=== PATIENT | female | born 1990 | race Caucasian/White ===

== ENCOUNTER → 2020-07-13 | Outpatient (CLI) | payer OTHER ==
[~2020-07-13] MED LIST: IBUPROFEN800 MG PO; LODINE CAP 300300 MG PO
[2020-07-13 17:36] LABS: HEMOGLOBIN 13.3 gm/dl (12.3-15.3); RED BLOOD COUNT 4.23 M/UL (4.00-5.10); WHITE BLOOD COUNT 13.4 K/UL (4.5-11.0)
[2020-07-13 17:52] LABS: BUN/CREATININE RATIO 33 (0-10)
[2020-07-15 19:12] LABS: AMPHETAMINES, URINE Negative ng/mL (Cutoff=1000); BARBITURATE Negative ng/mL (Cutoff=200); BENZODIAZEPINES Negative ng/mL (Cutoff=200); CANNABINOIDS Negative ng/mL (Cutoff=20); COCAINE (METABOLITE) Negative ng/mL (Cutoff=300); CREATININE 210.3 mg/dL (20.0-300.0); MEPERIDINE Negative ng/mL (Cutoff=200); METHADONE Negative ng/mL (Cutoff=300); OPIATES Negative ng/mL (Cutoff=300); PHENCYCLIDINE Negative ng/mL (Cutoff=25); PROPOXYPHENE Negative ng/mL (Cutoff=300)
== END ==
LOC: LAB 16:54
PROVIDERS: Family Medicine
DX: R53.83 Other fatigue (principal)
CPT/HCPCS: 80053; 80307; 82607; 82728; 84443; 85025

== ENCOUNTER → 2021-07-14 | Outpatient (CLI) | payer OTHER | LOC: RAD 17:59 | DX: M25.511 Pain in right shoulder (principal) | CPT/HCPCS: 73030 ==

== ENCOUNTER → 2021-09-20 | Outpatient (CLI) | payer OTHER ==
[~2021-09-20] MED LIST changes: +CHANTIX PO; +IBU800 MG PO; +METHYLPHENIDATE10 M1 PO; +MIRENA1 EACH VG; +NEURONTIN800 MG PO; +ONDANSETRON HCL8 MG PO; +SUBOXONE 8 MG-1 EACH SL; +VENLAFAXINE H37.5 M2 PO; +WELLBUTRIN SR150 MG PO
[2021-09-20 09:10] LABS: HEMOGLOBIN 13.3 gm/dl (12.3-15.3); RED BLOOD COUNT 4.29 M/UL (4.00-5.10); WHITE BLOOD COUNT 8.1 K/UL (4.5-11.0)
== END ==
LOC: OPSV2 08:00
PROVIDERS: Obstetrics & Gynecology
DX: Z01.812 Encounter for preprocedural laboratory examination (principal); N81.9 Female genital prolapse, unspecified
CPT/HCPCS: 36415; 81001; 85025

== ENCOUNTER 2021-09-27 18:48 | Emergency (ER) | payer OTHER ==
[~2021-09-27 18:48] MED LIST changes: -ERYTHROMYCIN OP1 GM OP
[2021-09-27] MEDS ORDERED: ERYTHROMYCIN OP1 GM OP (19:33)
== END 2021-09-27 19:51 | disposition home or self-care (01) ==
LOC: ER1 18:48
DX: S05.01XA Injury of conjunctiva and corneal abrasion without foreign body, right eye, initial encounter (principal); F17.290 Nicotine dependence, other tobacco product, uncomplicated; X58.XXXA Exposure to other specified factors, initial encounter
CPT/HCPCS: 99283

== ENCOUNTER → 2021-09-27 | Day surgery (SDC) | payer OTHER ==
[~2021-09-27] MED LIST changes: +DOCUSATE SODIU250 MG PO; +ERYTHROMYCIN OP1 GM OP; +IBUPROFEN600 MG PO; +KETOROLAC TROME10 MG PO
== END | disposition home or self-care (01) ==
LOC: OR 05:38 → EDSTATUS 09:45 → OR 09:45
DX: N81.4 Uterovaginal prolapse, unspecified (principal); K46.9 Unspecified abdominal hernia without obstruction or gangrene; E66.9 Obesity, unspecified; I10 Essential (primary) hypertension; Z20.822 Contact with and (suspected) exposure to COVID-19; Z88.8 Allergy status to other drugs, medicaments and biological substances; Z87.891 Personal history of nicotine dependence
CPT/HCPCS: 36415; 84703; C1769; J0690; J1100; J1170; J1885; J2001; J2250; J2405; J2704; J3010; J7050; J7120